=== PATIENT | female | born 1990 | race Hispanic/Latino ===

== ENCOUNTER 2018-03-30 21:38 | Observation (INO) | payer MEDICAID ==
[~2018-03-30] VITALS: Ht 167.6 cm; Wt 127.0 kg
[2018-03-30 22:25] LABS: BASOPHILS % (AUTO) 0.3 % (0.0-5.0); EOSINOPHILS % (AUTO) 0.6 % (0.0-8.0); HEMATOCRIT 36.2 % (36-48); LYMPHOCYTES % (AUTO) 15.6 % (21.0-51.0); MEAN CORPUSCULAR HEMOGLOBIN 29.5 pg (27.0-33.0); MEAN CORPUSCULAR HGB CONC 34.5 g/dL (32.0-36.0); MEAN CORPUSCULAR VOLUME 85.5 fL (79-99); MONOCYTES % (AUTO) 4.3 % (3.0-13.0); NEUTROPHILS % (AUTO) 79.2 % (40.0-77.0); NUCLEATED RED BLOOD CELLS 0.1 % (0.0-0.19); PLATELET COUNT (AUTO) 292 K/uL (130-400); RED BLOOD CELL COUNT(AUTO) 4.24 MIL/uL (4.00-5.50); RED CELL DISTRIBUTION WIDTH 14.2 % (11.0-15.5)
[2018-03-30 22:36] LABS: CREATININE 0.7 mg/dL (0.5-1.5)
[2018-03-30 22:40] LABS: ALBUMIN 2.4 g/dL (3.5-5.0); BILIRUBIN,DIRECT 0.3 mg/dL (0.0-0.3); BILIRUBIN,TOTAL 0.5 mg/dL (0.2-1.0); TOTAL PROTEIN, SERUM 7.3 g/dL (6.0-8.3)
[2018-03-30 22:45] LABS: APPEARANCE,URINE Cloudy (CLEAR); BILIRUBIN,URINE Moderate (NEGATIVE); COLOR,URINE Dark Yellow (YELLOW); GLUCOSE, URINE (UA) Negative (NEGATIVE); KETONES,URINE 15 mg/dL (NEGATIVE); LEUKOCYTE ESTERASE ,URINE Small (NEGATIVE); NITRATE,URINE Positive (NEGATIVE); OCCULT BLOOD,URINE Negative (NEGATIVE); PH,URINE 5.5 (5.0-8.0); PROTEIN,URINE POS 1+ (NEGATIVE)
[2018-03-30] MEDS ORDERED: PROMETHAZINE HCL 25 MG/ML 1ML AMPULE IM ONE (22:46)
[2018-03-30] MEDS ORDERED: MORPHINE SULFATE 4 MG/1ML SYG ONE (22:46)
[2018-03-30] MEDS ORDERED: ACETAMINOPHEN 325 MG TAB ONE (22:51)
[2018-03-30 22:56] LABS: BACTERIA,URINE Rare /HPF (None Seen); MUCUS,URINE Few LPF (None Seen); RBC,URINE None Seen /HPF (0-1); SQUAMOUS EPITHELIAL CELL,UR Moderate /HPF (0-2)
[2018-03-30] MEDS ORDERED: LABETALOL HCL 5 MG/ML 20ML VIAL IV ONE (23:10)
[2018-03-30] MEDS ORDERED: LACTATED RINGERS 1000ML 1,000 ML IV PRN (23:44)
[2018-03-31 00:14] LABS: AMPHET/METH SCREEN,URINE NEGATIVE (NEGATIVE); BARBITURATE SCREEN, URINE NEGATIVE (NEGATIVE); BENZODIAZEPINES SCREEN,URINE NEGATIVE (NEGATIVE); CANNABINOID SCREEN,URINE NEGATIVE (NEGATIVE); COCAINE SCREEN,URINE NEGATIVE (NEGATIVE); OPIATE SCREEN,URINE NEGATIVE (NEGATIVE); PHENCYCLIDINE SCREEN,URINE NEGATIVE (NEGATIVE)
[2018-03-31] MEDS ORDERED: CEFTRIAXONE SODIUM 1 GM IVP ONE (01:15)
[2018-03-31] MEDS ORDERED: LACTATED RINGERS 1000ML 1,000 ML IV SCH (01:15)
== END 2018-03-31 08:44 | disposition home or self-care (01) ==
LOC: EDH 21:38 → LDH 21:56
PROVIDERS: ADMIT Obstetrics & Gynecology; ATTEND Obstetrics & Gynecology
DX: O26.893 Other specified pregnancy related conditions, third trimester (principal); R10.9 Unspecified abdominal pain; Z3A.34 34 weeks gestation of pregnancy; Z87.891 Personal history of nicotine dependence; Z79.899 Other long term (current) drug therapy
CPT/HCPCS: 36415; 76705; 80048; 80076; 80305; 81001; 83690; 85025; 93005; 96374; 99285; G0378 ×11; J0696; J2550; J3490; J7120; 96360; 96361; J2270

== ENCOUNTER 2021-10-22 21:38 | Emergency (ER) | payer MEDICAID, OTHER ==
[~2021-10-22] VITALS: Ht 167.6 cm; Wt 81.6 kg
[~2021-10-22 21:38] MED LIST: LEVO500T90 PO
[2021-10-22] MEDS ORDERED: DEXAMETHASONE 4 MG TAB PO ONE (22:30)
[2021-10-22] MEDS ORDERED: ACETAMINOPHEN WITH CODEINE 1 TAB TAB PO ONE (22:30)
[2021-10-22 22:48] VITALS: BP 102/72
[2021-10-22] MEDS ORDERED: GABA300C PO (23:05)
[2021-10-22] MEDS ORDERED: ACET-2079 PO (23:05)
[2021-10-22] MEDS ORDERED: PRED20TA3 PO (23:05)
[2021-10-22] MEDS ORDERED: FAMO-136 PO (23:05)
== END 2021-10-22 23:18 | disposition home or self-care (01) ==
LOC: EDH 21:38
DX: B02.9 Zoster without complications (principal); Z79.899 Other long term (current) drug therapy; Z90.89 Acquired absence of other organs; Z90.49 Acquired absence of other specified parts of digestive tract; Z98.890 Other specified postprocedural states
CPT/HCPCS: 99283; J8540